=== PATIENT | female | born 1955 | race African-American/Black ===

== ENCOUNTER 2017-04-02 02:26 | Emergency (ER) | payer MEDICAID ==
[~2017-04-02] VITALS: Ht 175.3 cm; Wt 81.6 kg
[~2017-04-02 02:26] MED LIST: BACTROBAN 2% OI15 GM TOPIC; BENADRYL50 MG ORAL; BENTYL10 MG ORAL; BUTALB-ACETAMI1 EAC1 PO; CYCLOBENZAPRINE10 MG ORAL; GENTAMICIN SULF15 G2 TOPIC; IBUPROFEN600 MG ORAL; MAALOX ADVANCE770 ML PO; MEDROL DOSEPAK4 MG ORAL; NAPROXEN375 M2 ORAL; NORCO 5-325 TA1 EACH ORAL; OMEPRAZOLE40 M1 ORAL; SUMATRIPTAN SUC25 MG PO; TAMIFLU75 MG ORAL; TOPAMAX25 MG ORAL; VALIUM5 MG ORAL; ZITHROMAX250 MG ORAL; ZOFRAN ODT4 MG ORAL
[2017-04-02] MEDS ORDERED: NKM (02:38)
[2017-04-02 02:48] VITALS: BP 121/77
--- NOTE | 2017-04-02 02:54 | Emergency Room Report ---
History of Present Illness General Chief Complaint: Pain Source: Patient Present Illness [facility] This is a 61-year-old female with a history of migraine. She presents with chief complaint of back/hip pain. Onset was around 8:00 last night. She was taking out the trash and when she bent over she fell a pop in the lower back/ buttock area. Worse when she moves. Worse when she lift her leg. No other trauma. Pain is 10 out of 10. No incontinence of bowel or urine. No fever or chills. Denies any other complaint. Allergies: Coded Allergies: SULFA (SULFONAMIDE ANTIBIOTICS) (Unverified Allergy, Unknown, 07/29/16) Patient History Past Medical History: see triage record, old chart reviewed, migraines Past Surgical History: other Pertinent Family History: none Social History: Denies: smoking Now: No Immunizations: other Reviewed Nursing Documentation: PMH: Agreed, PSxH: Agreed Nursing Documentation-PMH Past Medical History: No History, Except For Hx Cardiac Problems: No - MIGRANES Hx Neurological Problems: No - Migraines Hx Cerebrovascular Accident: Yes - MIGRAINE HEADACHES Review of Systems Eye: Denies: eye pain, blurred vision ENT: Denies: ear pain, nose congestion, throat swelling Respiratory: Denies: cough, shortness of breath Cardiovascular: Denies: chest pain, palpitations Gastrointestinal: Denies: abdominal pain, diarrhea, nausea, vomiting Musculoskeletal: Reports: back pain, Denies: joint pain Skin: Denies: rash Neurological: Denies: headache, numbness Endocrine: Denies: increased thirst, increased urine Hematologic/Lymphatic: Denies: easy bruising All Other Systems: negative except mentioned in HPI Physical Exam Vital Signs Date Time Temp Pulse Resp B/P (MAP) Pulse Ox O2 Delivery O2 Flow Rate FiO2 04/02/17 02:31 97.7 80 17 108/72 100 Room Air vitals normal Sp02 EP Interpretation: reviewed, normal General Appearance: well appearing, no apparent distress, alert Head: normocephalic, atraumatic Eyes: bilateral eye PERRL, bilateral eye EOMI ENT: hearing grossly normal, normal pharynx Neck: full range of motion, supple, no meningismus Respiratory: chest non-tender, lungs clear, normal breath sounds Cardiovascular #1: regular rate, rhythm, no murmur Gastrointestinal: normal bowel sounds, non tender, no mass, no organomegaly, no bruit, non-distended Musculoskeletal: back normal, gait/station normal, normal range of motion, other - Tenderness over the right lateral sacral area. Worse with hip flexion. No pain with rotation of the hip. No pain with adduction or abduction. No pain over the knee. No abnormality of the hamstring or quadricep. Sensation normal. Pulses normal. Psychiatric: mood/affect normal Skin: warm/dry Medical Decision Making Diagnostic Impression: Primary Impression: Muscle strain of gluteal region Qualified Codes: S76.011A - Strain of muscle, fascia and tendon of right hip, initial encounter ER Course Pt with muscle strain. no frx or dislocation. no obvious muscle/ligament/tendon tear. Told pt that MRI would be a better test if not better after conservative treatment. CT/MRI/US Diagnostic Results CT/MRI/US Diagnostic Results : Imaging Test Ordered: CT pelvis Impression read by radiologist. No evidence of acute fracture. No dislocation. Sacroiliac joints are within normal limits. No adnexal lesions. No bowel distention. No free fluid or air within the pelvis. Radiologist: Wisam Mtz M.D. Last Vital Signs Date Time Temp Pulse Resp B/P (MAP) Pulse Ox O2 Delivery O2 Flow Rate FiO2 04/02/17 02:48 97.8 59 18 121/77 100 Room Air Status: improved Disposition: HOME, SELF-CARE Condition: Stable Scripts Ibuprofen* (MOTRIN*) 600 Mg Tablet 600 MG ORAL THREE TIMES A DAY, #30 TAB 0 Refills Prov: MICHAEL ALVAREZ M.D. 04/02/17 Hydrocodone/Acetaminophen 5-325* (HYDROCODONE/ACETAMINOPHEN 5-325*) 1 Each Tablet 1 TAB ORAL Q6H Y for For Pain, #30 TAB 0 Refills Prov: MICHAEL ALVAREZ M.D. 04/02/17 Additional Instructions: Follow up with your doctor in 7 days. No heavy lifting. Return if worse. MICHAEL ALVAREZ M.D. Apr 02, 2017 02:54
[2017-04-02] MEDS ORDERED: HYDROmorphone 1mg/ml Carpuject IM ONE (03:00)
[2017-04-02] MEDS ORDERED: HYDROCODON-ACE1 EA15 ORAL (03:51)
[2017-04-02] MEDS ORDERED: IBUPROFEN600 MG ORAL (03:51)
[2017-04-02 04:00] VITALS: BP 107/69
[2017-04-02 04:04] VITALS: BP 107/69
== END 2017-04-02 04:00 | disposition home or self-care (01) ==
LOC: EMR 03:01
DX: S76.011A Strain of muscle, fascia and tendon of right hip, initial encounter (principal); X58.XXXA Exposure to other specified factors, initial encounter; Y93.9 Activity, unspecified; Y99.9 Unspecified external cause status; Z88.2 Allergy status to sulfonamides
CPT/HCPCS: 72192; 96372; 99284; J1170